=== PATIENT | male | born 1995 | race Two or more races ===

== ENCOUNTER 2018-06-21 07:24 | Outpatient (CLI) | payer OTHER | END 2018-06-21 07:30 | disposition home or self-care (01) | LOC: LAB 07:24 | DX: Z00.00 Encounter for general adult medical examination without abnormal findings (principal); R10.84 Generalized abdominal pain ==

== ENCOUNTER 2018-06-26 11:43 | Emergency (ER) | payer OTHER ==
[~2018-06-26] VITALS: Ht 182.9 cm; Wt 56.7 kg
== END 2018-06-26 20:56 | disposition home or self-care (01) ==
LOC: ER 11:43
DX: R42 Dizziness and giddiness (principal)

== ENCOUNTER → 2018-07-09 08:20 | Outpatient (CLI) | payer OTHER | END | disposition home or self-care (01) | LOC: LAB 07-08 10:08 | DX: E16.1 Other hypoglycemia (principal) ==

== ENCOUNTER → 2018-07-27 15:23 | Outpatient (CLI) | payer OTHER | END | disposition home or self-care (01) | LOC: LAB 15:23 | DX: Z11.3 Encounter for screening for infections with a predominantly sexual mode of transmission (principal) ==

== ENCOUNTER → 2019-02-04 | Emergency (ER) | payer OTHER | END | disposition left against medical advice (07) | LOC: ER 23:46 | DX: Z53.20 Procedure and treatment not carried out because of patient's decision for unspecified reasons (principal) ==

== ENCOUNTER → 2019-05-11 07:38 | Outpatient (CLI) | payer OTHER | END | disposition home or self-care (01) | LOC: LAB 07:38 | DX: R42 Dizziness and giddiness (principal); R51 Headache; Z00.00 Encounter for general adult medical examination without abnormal findings; E78.49 Other hyperlipidemia; E55.9 Vitamin D deficiency, unspecified; J11.1 Influenza due to unidentified influenza virus with other respiratory manifestations ==

== ENCOUNTER → 2019-09-15 14:32 | Outpatient (CLI) | payer OTHER | END | disposition home or self-care (01) | LOC: LAB 14:32 | DX: J11.1 Influenza due to unidentified influenza virus with other respiratory manifestations (principal); R05 Cough ==

== ENCOUNTER 2019-09-20 09:20 | Outpatient (CLI) | payer OTHER | END 2019-09-20 10:00 | disposition home or self-care (01) | LOC: RAD 09:20 | DX: R05 Cough (principal) ==

== ENCOUNTER 2019-10-16 08:21 | Outpatient (CLI) | payer OTHER | END 2019-10-16 15:51 | disposition home or self-care (01) | LOC: LAB 08:21 | DX: R10.84 Generalized abdominal pain (principal); Z00.00 Encounter for general adult medical examination without abnormal findings; E78.49 Other hyperlipidemia; E55.9 Vitamin D deficiency, unspecified; R42 Dizziness and giddiness; N39.0 Urinary tract infection, site not specified ==

== ENCOUNTER 2019-10-16 09:04 | Outpatient (CLI) | payer OTHER | END 2019-10-16 09:07 | disposition home or self-care (01) | LOC: SONOGRAMA 09:04 | DX: R10.84 Generalized abdominal pain (principal) ==

== ENCOUNTER 2019-10-18 14:17 | Outpatient (CLI) | payer OTHER | END 2019-10-18 17:14 | disposition home or self-care (01) | LOC: LAB 14:17 | DX: R10.32 Left lower quadrant pain (principal); Z12.11 Encounter for screening for malignant neoplasm of colon; R31.21 Asymptomatic microscopic hematuria; R94.5 Abnormal results of liver function studies ==

== ENCOUNTER 2019-10-19 17:24 | Outpatient (CLI) | payer OTHER | END 2019-10-19 17:28 | disposition home or self-care (01) | LOC: LAB 17:24 | DX: Z12.11 Encounter for screening for malignant neoplasm of colon (principal); R10.32 Left lower quadrant pain; R31.21 Asymptomatic microscopic hematuria; R94.5 Abnormal results of liver function studies ==

== ENCOUNTER 2019-10-31 14:13 | Outpatient (CLI) | payer OTHER | END 2019-10-31 14:19 | disposition home or self-care (01) | LOC: LAB 14:13 | DX: J11.1 Influenza due to unidentified influenza virus with other respiratory manifestations (principal) ==

== ENCOUNTER 2019-11-20 09:37 | Outpatient (CLI) | payer OTHER | END 2019-11-20 09:40 | disposition home or self-care (01) | LOC: RAD 09:37 | DX: R05 Cough (principal) ==

== ENCOUNTER → 2019-12-05 09:53 | Outpatient (CLI) | payer OTHER | END | disposition home or self-care (01) | LOC: LAB 09:53 | DX: R05 Cough (principal) ==

== ENCOUNTER 2019-12-29 11:34 | Outpatient (CLI) | payer OTHER | END 2019-12-29 11:41 | disposition home or self-care (01) | LOC: LAB 11:34 | DX: J45.998 Other asthma (principal); J20.8 Acute bronchitis due to other specified organisms ==

== ENCOUNTER 2019-12-29 12:35 | Outpatient (CLI) | payer OTHER | END 2019-12-29 12:49 | disposition home or self-care (01) | LOC: RAD 12:35 | DX: J20.8 Acute bronchitis due to other specified organisms (principal); J45.21 Mild intermittent asthma with (acute) exacerbation; M15.0 Primary generalized (osteo)arthritis; J32.8 Other chronic sinusitis; S19.9XXA Unspecified injury of neck, initial encounter ==

== ENCOUNTER 2019-12-30 10:06 | Outpatient (CLI) | payer OTHER | END 2019-12-30 10:32 | disposition home or self-care (01) | LOC: LAB 10:06 | DX: J45.998 Other asthma (principal); J20.8 Acute bronchitis due to other specified organisms ==

== ENCOUNTER 2020-03-18 17:00 | Outpatient (CLI) | payer OTHER | END 2020-03-18 17:08 | disposition home or self-care (01) | LOC: LAB 17:00 | DX: Z20.828 Contact with and (suspected) exposure to other viral communicable diseases (principal); Z03.818 Encounter for observation for suspected exposure to other biological agents ruled out ==

== ENCOUNTER 2020-03-26 16:52 | Outpatient (CLI) | payer OTHER | END 2020-03-26 17:13 | disposition home or self-care (01) | LOC: CERTIFICAD 16:52 → LAB 16:52 | DX: Z11.1 Encounter for screening for respiratory tuberculosis (principal); K42.9 Umbilical hernia without obstruction or gangrene; K29.00 Acute gastritis without bleeding; R11.0 Nausea; Z00.8 Encounter for other general examination; Z12.11 Encounter for screening for malignant neoplasm of colon; Z11.3 Encounter for screening for infections with a predominantly sexual mode of transmission ==

== ENCOUNTER 2020-04-23 08:00 | Outpatient (CLI) | payer OTHER | END 2020-04-23 15:00 | disposition home or self-care (01) | LOC: PPH VACUNA 08:00 | DX: Z23 Encounter for immunization (principal) ==

== ENCOUNTER 2021-05-02 15:13 | Emergency (ER) | payer OTHER ==
[~2021-05-02] VITALS: Ht 182.9 cm; Wt 59.0 kg
[2021-05-02] MEDS ORDERED: TAMS0.4C PO (20:56)
[2021-05-02] MEDS ORDERED: ZITHROMAX200 MG PO (20:56)
== END 2021-05-02 21:30 | disposition home or self-care (01) ==
LOC: ER 15:13
DX: A49.3 Mycoplasma infection, unspecified site (principal); Z03.818 Encounter for observation for suspected exposure to other biological agents ruled out

== ENCOUNTER 2021-05-03 10:09 | Outpatient (CLI) | payer OTHER ==
[~2021-05-03 10:09] MED LIST: TAMS0.4C PO; ZITHROMAX200 MG PO
== END 2021-05-03 10:10 | disposition home or self-care (01) ==
LOC: LAB 10:09
PROVIDERS: ATTEND General Practice
DX: B20 Human immunodeficiency virus [HIV] disease (principal); Z11.3 Encounter for screening for infections with a predominantly sexual mode of transmission